=== PATIENT | male | born 1995 | race Caucasian/White ===

== ENCOUNTER 2017-07-30 03:08 | Emergency (ER) | payer OTHER ==
[2017-07-30 03:17] VITALS: BP 127/81; PULSE 77; RESP 16; TEMP 97.7; O2SAT 96
[2017-07-30] MEDS ORDERED: IBUPROFEN 600 MG TAB PO ONE ×2 (03:20→03:21)
--- NOTE | 2017-07-30 03:32 | EDPHY ---
H & P Stated Complaint: C/O L shoulder pain. States rough housing with friends. HPI/ROS: HPI CHIEF COMPLAINT: Left shoulder pain HISTORY OF PRESENT ILLNESS: This patient very pleasant 22-year-old male, otherwise healthy no significant medical history does not take any daily medications he presents emergency room left shoulder pain. Patient states that he was rough-housing with friends and fell onto his left shoulder. He does admit to drinking alcohol tonight. States he has lateral left shoulder pain. Worse with movement. Injury happened approximately an hour ago. Denies any other areas of pain. Past Medical History: No medical history Past Surgical History: No surgical history Social History: Drink alcohol this evening. Family History: Noncontributory ROS REVIEW OF SYSTEMS: A comprehensive 10 point review of systems is otherwise negative aside from elements mentioned in the history of present illness. Exam Constitutional triage nursing summary reviewed, vital signs reviewed, awake/ alert. Eyes normal conjunctivae and sclera, EOMI, PERRLA. HENT normal inspection, atraumatic, moist mucus membranes, no epistaxis, neck supple/ no meningismus, no raccoon eyes. Respiratory clear to auscultation bilaterally, normal breath sounds, no respiratory distress, no wheezing. Cardiovascular rate normal, regular rhythm, no murmur, no edema, distal pulses normal. Gastrointestinal soft, non-tender, no rebound, no guarding, normal bowel sounds, no distension, no pulsatile mass. Genitourinary no CVA tenderness. Musculoskeletal left arm: Good radial pulse, axillary nerve intact, good cap refill, warm extremity, good immunochemist strength, tender palpation over the AC joint, also tender with range of motion but can fully range. Abrasion present to the posterior left shoulder. no midline vertebral tenderness, full range of motion , no calf swelling, no tenderness of extremities, no meningismus, good pulses, neurovascularly intact. Skin pink, warm, & dry, no rash, skin atraumatic. Neurologic awake, alert and oriented x 3, AAOx3, moves all 4 extremities equally, motor intact, sensory intact, CN II-XII intact, normal cerebellar, normal vision, normal speech. Psychiatric normal mood/affect. Heme/Lymph/Immune no lymphadenopathy. Differential Diagnosis: Includes but is not limited to in a particular order left shoulder fracture, soft tissue injury, AC joint separation, rotator cuff injury, contusion Medical Decision Making: Plan for this patient ibuprofen here in emergency room ice pack, x-ray left shoulder. Re-evaluation: ED x-ray left shoulder: Negative for acute fracture. Image interpreted by myself. Clinic on exam I believe this patient has rotator cuff injury. Be placed in a sling. Ice pack anti-inflammatory pain medicine. Follow up with Orthopedics. He understands Source: Patient - Personal History Current Tetanus/Diphtheria Vaccine: Unsure Current Tetanus Diphtheria and Acellular Pertussis (TDAP): Unsure - Medical/Surgical History Hx Asthma: No Hx Chronic Respiratory Disease: No Hx Diabetes: No Hx Cardiac Disease: No Hx Renal Disease: No Hx Cirrhosis: No Hx Alcoholism: No Hx HIV/AIDS: No Hx Splenectomy or Spleen Trauma: No Other PMH: None known. - Social History Smoking Status: Never smoked Constitutional: Initial Vital Signs Temperature (C) 36.5 C 07/30/17 03:11 Heart Rate 77 07/30/17 03:11 Respiratory Rate 16 07/30/17 03:11 Blood Pressure 127/81 H 07/30/17 03:11 O2 Sat (%) 96 07/30/17 03:11 O2 Delivery Mode Room Air Allergies/Adverse Reactions: avocado Allergy (Verified 07/30/17 03:17) Home Medications: Medication Instructions Recorded Ibuprofen [Motrin (*)] 800 mg PO Q6-8PRN #14 tab 07/30/17 Medical Decision Making - Data Points Medications Given: Discontinued Medications Ibuprofen (Motrin) 600 mg PO EDNOW ONE Stop: 07/30/17 03:22 Last Admin: 07/30/17 03:23 Dose: 600 mg Departure - Departure Disposition: Home, Routine, Self-Care Clinical Impression: Rotator cuff (capsule) sprain Qualifiers: Encounter type: initial encounter Laterality: left Qualified Code(s): S43.422A - Sprain of left rotator cuff capsule, initial encounter Condition: Good Instructions: Rotator Cuff Injury (ED) Additional Instructions: 1. Ice her shoulder for the next 24 hours. 2. Take anti-inflammatory pain medicine like ibuprofen for pain control. 3. Sling for comfort. 4. Follow up with Orthopedics. Please call their for an appointment. 5. You most likely have a rotator cuff injury. Referrals: NONE *PRIMARY CARE P,. [Primary Care Provider] - As per Instructions Charles Daniels MD [Medical Doctor] - As per Instructions Prescriptions: Ibuprofen [Motrin (*)] 800 mg PO Q6-8PRN #14 tab
== END 2017-07-30 04:10 | disposition home or self-care (01) ==
DX: S43.422A Sprain of left rotator cuff capsule, initial encounter (principal); W18.39XA Other fall on same level, initial encounter; Y99.8 Other external cause status; Y93.83 Activity, rough housing and horseplay